=== PATIENT | male | born 1935 ===

== ENCOUNTER 2021-12-31 19:36 | Emergency (ER) | payer OTHER ==
[~2021-12-31] VITALS: Ht 170.2 cm; Wt 53.5 kg
--- NOTE | 2021-12-31 20:33 | NUR ---
Dr pritchett at bedside, MSE in progress.
[2021-12-31] MEDS ORDERED: IV NORMAL SALINE 500 ML BAG IV ONE (20:45)
[2021-12-31 20:57] LABS: HEMATOCRIT 30.1 % (36.7-47.1); MEAN CORPUSCULAR HEMOGLOBIN 30.6 uug (23.8-33.4); MEAN CORPUSCULAR VOLUME 88.1 fL (73.0-96.2); PLATELET COUNT (AUTO) 122 K/uL (152-348)
[2021-12-31 21:03] LABS: CREATININE 1.2 mg/dL (0.6-1.3); POTASSIUM 4.8 mmol/L (3.5-5.1)
[2021-12-31 21:16] LABS: BILIRUBIN,DIRECT 0.1 mg/dL (0.0-0.2); BILIRUBIN,TOTAL 0.3 mg/dL (0.2-1.0); TOTAL PROTEIN, SERUM 6.6 g/dL (6.4-8.2)
[2021-12-31 22:32] VITALS: BP 132/95
--- NOTE | 2021-12-31 22:32 | NUR ---
Patient discharged to home in stable condition. Written and verbal after care instructions given. Patient verbalizes understanding of instructions. Stressed follow up or return to ER for worsening s/s. pt ambulated with steady gait. denies pain. no SOB. no chest pain. AOx4
== END 2021-12-31 22:33 | disposition home or self-care (01) ==
LOC: ER 19:44
DX: U07.1 COVID-19 (principal); J12.82 Pneumonia due to coronavirus disease 2019; J02.9 Acute pharyngitis, unspecified; R94.31 Abnormal electrocardiogram [ECG] [EKG]; Z85.028 Personal history of other malignant neoplasm of stomach; Z92.21 Personal history of antineoplastic chemotherapy
CPT/HCPCS: 36415; 71045; 80048; 80076; 83880; 84145; 85025; 87040 ×2; 87400; 87426; 93005; 96360; 99285; J7040

== ENCOUNTER 2022-01-02 07:28 | Inpatient (IN) | payer OTHER ==
[~2022-01-02] VITALS: Ht 170.2 cm; Wt 53.5 kg
[2022-01-02] MEDS: AZITHROMYCIN 250 MG TABLET PO ONE ×2 (08:00→08:59)
[2022-01-02] MEDS ORDERED: DEXAMETHASONE SOD PHOSPHATE 4 MG INJ IV ONE (08:00)
[2022-01-02] MEDS ORDERED: IV NORMAL SALINE 1000 ML BAG IV ONE (08:00)
[2022-01-02] MEDS ORDERED: CEFTRIAXONE 1 G in IV DEXTROSE 5% 50 ML IV ONE (08:00)
[2022-01-02] MEDS ORDERED: CEFTRIAXONE /D5W 50ML IVPB **ER PYXIS IV ONE (08:04)
[2022-01-02] MEDS ORDERED: DEXAMETHASONE SOD PHOSPHATE 10 MG INJ ONE (08:05)
[2022-01-02] MEDS ORDERED: AZITHROMYCIN 500MG/ D5W 250ML IVPB **ER PYXIS ONLY IV ONE (08:05)
--- NOTE | 2022-01-02 08:10 | NUR ---
CASIE ASHFORD PROVIDED FOR PT. SON ATM[facility].
[2022-01-02] MEDS ORDERED: ACETAMINOPHEN ES 500 MG TABLET ONE (08:43)
[2022-01-02 08:44] LABS: HEMATOCRIT 29.2 % (36.7-47.1); MEAN CORPUSCULAR HEMOGLOBIN 30.8 uug (23.8-33.4); MEAN CORPUSCULAR VOLUME 87.9 fL (73.0-96.2); PLATELET COUNT (AUTO) 119 K/uL (152-348)
[2022-01-02 08:55] LABS: CARBON DIOXIDE 26 mmol/L (21-32); CHLORIDE 101 mmol/L (98-107); GLUCOSE 102 mg/dL (74-106); POTASSIUM 4.3 mmol/L (3.5-5.1); UREA NITROGEN, BLOOD 15 mg/dL (7-18)
[2022-01-02] MEDS ORDERED: ACETAMINOPHEN ES 500 MG TABLET PO ONE (09:00)
[2022-01-02 09:23] LABS: ALANINE AMINOTRANSFERASE 18 U/L (16-63); ALKALINE PHOSPHATASE 85 U/L (50-136); ASPARTATE AMINOTRANSFERASE 17 U/L (15-37); BILIRUBIN,DIRECT 0.1 mg/dL (0.0-0.2); BILIRUBIN,TOTAL 0.3 mg/dL (0.2-1.0); TOTAL PROTEIN, SERUM 6.3 g/dL (6.4-8.2)
[2022-01-02] MEDS ORDERED: AZITHROMYCIN IV 500 MG in IV DEXTROSE 5% 250 ML IV SCH (09:30)
[2022-01-02] MEDS ORDERED: ACETAMINOPHEN 325 MG TABLET PO ONE (09:30)
--- NOTE | 2022-01-02 11:25 | NUR ---
PT MABULATED TO BATHROOM TWICE WITH STEADY GAIT. PT SAYS FEELS BETTER. PT'S SON TRANSLATES FROM [place] TO [place]. PT ONLY SPEAKING [place].
--- NOTE | 2022-01-02 11:27 | NUR ---
PT REQUESTING KOSHER FOOD ONLY.
--- NOTE | 2022-01-02 11:41 | NUR ---
pt admitted to tele. transfer to floor pending on bed availability.
[2022-01-02] MEDS ORDERED: ONDANSETRON 4 MG/2 ML VIAL IV PRN (11:45)
--- NOTE | 2022-01-02 12:39 | NUR ---
PT EATING LUNCH WITH GOOD APETITE. PT SAYS THAT HE FEELS BETTER.
[2022-01-02 16:27] LABS: *RHEUMATOID FACTOR SCREEN NEGATIVE (NEGATIVE)
[2022-01-02 16:46] LABS: THYROID STIMULATING HORMONE 3.951 mIU/mL (0.358-3.740)
--- NOTE | 2022-01-02 16:56 | NUR ---
please contact the following family members in case of any questions/matters any time: kalpesh moralez son [phone] pop salud grand daughter [phone] swathi salud grand son [phone] gurmeetgiorgio brannon grandson [phone]
--- NOTE | 2022-01-02 17:00 | NUR ---
pt agreed to have regular/cardiac diet without pork in stead of kosher diet.
--- NOTE | 2022-01-02 17:00 | NUR ---
dinner tray provided for pt.
--- NOTE | 2022-01-02 17:02 | NUR ---
transfered pt to floor in stable condition.
--- NOTE | 2022-01-02 17:10 | NUR ---
RECEIVED PATIENT FOR ADMISSION 86 YEARS OLD MALE BY KAI FROM ED WITH DX OF COVID PNEUMONIA PLACED INTO BED FIXED AND MADE COMFORTABLE PATIENT IS AWAKE ALERT AND AWARE FOLLOWS COMMAND BUT WITH LANGUAGE BARRIER AND PER REPORT HE IS HARD OF HEARING.HE IS ON ROOM AIR WITH ZEINA SOB PLACED ON COVID ISOLATION AND PRECAUTION AFEBRILE MADE COMFORTABLE WILL OBSERVE.
[2022-01-02 17:57] VITALS: BP 130/57
--- NOTE | 2022-01-02 19:30 | NUR ---
Received pt awake, alert and orientedx3. Pt in no acute respiratory distress. Iv intact. Safety and comfort provided. Will continue to monitor.
[2022-01-02 20:27] VITALS: BP 124/64
[2022-01-02] MEDS: IV NS 1000 ML 1,000 ML IV PRN (21:02)
[2022-01-02] MEDS: ENOXAPARIN SODIUM 40 MG/0.4 ML DISP.SYRIN SQ SCH (21:18)
--- NOTE | 2022-01-02 22:00 | NUR ---
Told pt that he will have to be NPO after midnight. Pt understand. Will continue to monitor.
[2022-01-03 04:33] VITALS: BP 123/63
--- NOTE | 2022-01-03 05:08 | NUR ---
stool ob specimen sent to lab. Waiting for urine and sputum specimen from the pt. Pt in no acute distress. Will continue to monitor.
[2022-01-03 06:10] LABS: *OCCULT BLOOD STOOL NEGATIVE (NEGATIVE)
--- NOTE | 2022-01-03 06:25 | NUR ---
sputum specimen sent to lab. Pt in no acute distress.Pt npo after midnight. Pt aware. All needs are met. Safety and comfort provided. Will endorse to incoming nurse for continuity of care.
--- NOTE | 2022-01-03 07:21 | NUR ---
IN ROOM AWAKE ALERT REMAIN ON COVID ISOLATION AND PRECAUTION NO SOB AT THIS TIME NOTED WITH OCCASSIONAL COUGH WITH NO SECRETIONS IVF IS IN PROGRESS ORDERED REMAIN ON ATB WITH NO S/S OF ADVERSE OR ALLERGIC REACTIONS AT THIS TIME MADE COMFORTABLE WILL CONTINUE TO OBSERVE.
[2022-01-03] MEDS ORDERED: CEFTRIAXONE 1 G in IV DEXTROSE 5% 50 ML IV SCH (08:00)
[2022-01-03 08:20] LABS: HEMATOCRIT 30.5 % (36.7-47.1); MEAN CORPUSCULAR HEMOGLOBIN 30.8 uug (23.8-33.4); MEAN CORPUSCULAR VOLUME 87.8 fL (73.0-96.2); PLATELET COUNT (AUTO) 143 K/uL (152-348)
[2022-01-03 08:22] LABS: MAGNESIUM 2.1 mg/dL (1.8-2.4); PHOSPHOROUS 3.5 mg/dL (2.5-4.9); POTASSIUM 4.8 mmol/L (3.5-5.1)
[2022-01-03] MEDS ORDERED: AZITHROMYCIN IV 500 MG in IV DEXTROSE 5% 250 ML IV SCH (09:00)
--- NOTE | 2022-01-03 09:24 | NUR ---
PATIENT SEEN AND EXAMINED BY FELIX CROCKER WITH NEW ORDERS AND NOTED
[2022-01-03 13:03] VITALS: BP 115/67
--- NOTE | 2022-01-03 16:22 | NUR ---
[facility] CRIMINAL JUSTICE PROFESSOR HERE TO SEE PATIENT WITH ORDERS.
[2022-01-03 16:34] LABS: *BILIRUBIN,URIN NEGATIVE (NEGATIVE); *BLOOD, URINE NEGATIVE (NEGATIVE); *CLARITY,URINE CLEAR (CLEAR); *COLOR,URINE YELLOW (YELLOW); *KETONES,URINE NEGATIVE (NEGATIVE); *UROBILINOGEN,URINE 0.2 E.U./dl (NORMAL); LEUKOCYTE ESTERASE ,URINE NEGATIVE (NEGATIVE); NITRITE, URINE NEGATIVE (NEGATIVE); PH,URINE 6.5 (5.0-8.0); UGLUCOSE NEGATIVE (NEGATIVE)
[2022-01-03 20:00] VITALS: BP 146/80
[2022-01-03] MEDS: ENOXAPARIN SODIUM 40 MG/0.4 ML DISP.SYRIN SQ SCH (20:37)
[2022-01-03] MEDS: ACETAMINOPHEN 325 MG TABLET PO PRN (20:41)
--- NOTE | 2022-01-03 20:41 | NUR ---
Received patient lying in bed. AAOx4. In no acute distress. Denies any pain. Complained of feeling cold. Shivering noted. Retook temp and was 99.7 orally. Tylenol 650mg PO given. Cooling measure provided. Instructed not to cover self with so many blankets. TC to patient son Moe to explain to patient and states understanding, he will phone patient. Denies any SOB. No coughing noted. COVID precaution observed. Other needs assessed and attended to. Safety measure initiated and call light within reached. Continue to monitor.
--- NOTE | 2022-01-03 22:21 | NUR ---
Patient continue to put on several blankets inspite of teaching provided regarding increase in temp. Grandson also came and brought sweater for patient. Teaching also provided to pt grandson, but insisting on keeping pt warm. Try to continue to provide cooling measures. Temp now 102.[address] Macedo. Awaiting for any new order.
[2022-01-03] MEDS: IV NS 1000 ML 1,000 ML IV PRN (22:28)
--- NOTE | 2022-01-03 22:39 | NUR ---
Dr. Macedo with order to do Blood Culturex2. Order carried out, informed [facility] and states understanding. Continue to monitor.
--- NOTE | 2022-01-03 23:30 | NUR ---
Temp. down to 100.8 orally. Continue with cooling measures. Denies any pain. Continue to monitor.
[2022-01-04 04:33] VITALS: BP 130/64
[2022-01-04 05:07] LABS: HEPATITIS B SURFACE AG Negative (Negative)
--- NOTE | 2022-01-04 06:27 | NUR ---
Patient slept well during the night. Denies any pain or SOB. Latest temp 99.2 orally. IV site on left FA intact and patent. IVF infusing.COVID precaution maintained. Needs attended to and met. Safety measure maintained and call light within reached.
[2022-01-04 06:46] LABS: HEMATOCRIT 30.1 % (36.7-47.1); MEAN CORPUSCULAR HEMOGLOBIN 30.7 uug (23.8-33.4); MEAN CORPUSCULAR VOLUME 87.4 fL (73.0-96.2); PLATELET COUNT (AUTO) 148 K/uL (152-348)
[2022-01-04 07:07] LABS: *ANTI-SCLERODERMA-70 AB <0.2 AI (0.0-0.9); *IMMUNOGLOBULIN G, SERUM 507 mg/dL (603-1613); *SJOGREN'S ANTI-SS-A <0.2 AI (0.0-0.9); *SJOGREN'S ANTI-SS-B <0.2 AI (0.0-0.9); *SMITH ANTIBODIES <0.2 AI (0.0-0.9); ANTI-DNA(DS) AB, QN <1 IU/mL (0-9); IMMUNOGLOBULIN A, SERUM 51 mg/dL (61-437); IMMUNOGLOBULIN M, SERUM 16 mg/dL (15-143)
[2022-01-04 07:19] LABS: CREATININE 1.2 mg/dL (0.6-1.3); MAGNESIUM 1.9 mg/dL (1.8-2.4); PHOSPHOROUS 3.3 mg/dL (2.5-4.9); POTASSIUM 4.7 mmol/L (3.5-5.1)
--- NOTE | 2022-01-04 07:42 | NUR ---
RECEIVED PATIENT IN BED REMAIN ON COVID ISOLATION AND PRECAUTION AFEBRILE AT THIS TIME PATIENT IS ALERT WITH LANGUAGE BARRIER IVF IN PROGRESS ORDERED WITH NO S/S OF INFILTERATION CALL LIGHTS AND PERSONAL BELONGINGS ARE WITHIN EASY REACH WILL CONTINUE TO OBSERVE.
[2022-01-04] MEDS: ACETAMINOPHEN 325 MG TABLET PO PRN ×2 (09:12→21:04)
--- NOTE | 2022-01-04 11:00 | NUR ---
PATIENT SEEN AND EXAMINE BY TELMA SMITH DERRICK FOLLOWER SPOKE WITH PATIENTS SON ELOISE AT LENGTH RE PLAN OF CARE WITH NEW ORDERS AND NOTED.
[2022-01-04 11:06] LABS: ALBUMIN 2.8 g/dL (2.9-4.4); ALPHA-1-GLOBULIN 0.4 g/dL (0.0-0.4); BETA GLOBULIN 0.9 g/dL (0.7-1.3); GAMMA GLOBULIN 0.5 g/dL (0.4-1.8); GLOBULIN, TOTAL 2.7 g/dL (2.2-3.9); M-SPIKE Not Observed g/dL (Not Observed)
[2022-01-04] MEDS ORDERED: ALBUTEROL SULFATE 8 GM HFA.AER.AD IH PRN (11:30)
--- NOTE | 2022-01-04 11:42 | NUR ---
DR HERNANDEZ NOTIFIED THAT PATIENT HAS FEVER MOST OF LAST NITE AND HAD ONE AT 0912 AT 101.7 HAD BLOOD CULTURES DONE LAST NOC BUT STATED NO NEW ORDERS AT THIS TIME.
[2022-01-04] MEDS: ZINC SULFATE 220 MG CAPSULE PO SCH (12:00)
[2022-01-04] MEDS: CHOLECALCIFEROL 1,000 UNIT TABLET PO SCH (12:00)
[2022-01-04] MEDS: ASCORBIC ACID 500 MG TABLET PO SCH ×2 (12:00→20:22)
[2022-01-04 12:01] VITALS: BP 105/54
[2022-01-04 16:35] VITALS: BP 99/48
[2022-01-04] MEDS: ENSURE ENLIVE (VAN) 240 ML LIQUID PO SCH (17:46)
[2022-01-04] MEDS: IV NS 1000 ML 1,000 ML IV PRN (18:40)
--- NOTE | 2022-01-04 19:30 | NUR ---
Received patient lying in bed. Family at bedside. Patient AAOx4. In no acute distress. Denies any pain or SOB. Afebrile at this time with temp. of 98.3 orally. IV site on left FA intact and patent. IVF infusing. COVID precaution observed. Needs assessed and attended to. Safety measure initiated and call light within reached.
[2022-01-04 20:00] VITALS: BP 138/78
[2022-01-04] MEDS: ENOXAPARIN SODIUM 40 MG/0.4 ML DISP.SYRIN SQ SCH (20:23)
--- NOTE | 2022-01-04 21:00 | NUR ---
Recheck patient temp and was 100.0 orally. Tylenol 650mg PO given for fever. Cooling measure initiated. Continue to monitor.
--- NOTE | 2022-01-04 23:23 | NUR ---
Patient afebrile at this time. Latest temp 98.7 orally. Denies any pain or SOB.
[2022-01-05 04:00] VITALS: BP 122/45
--- NOTE | 2022-01-05 05:53 | NUR ---
Patient AAOx4. In no apparent distress. Denies any pain or SOB. Afebrile at this time. IV site on left FA remains intact and patent. IVF infusing. COVID precaution maintained. Needs attended to and met. Safety measure maintained and call light within reached.
[2022-01-05 07:12] LABS: HEMATOCRIT 29.8 % (36.7-47.1); MEAN CORPUSCULAR HEMOGLOBIN 30.7 uug (23.8-33.4); MEAN CORPUSCULAR VOLUME 87.3 fL (73.0-96.2); PLATELET COUNT (AUTO) 142 K/uL (152-348)
[2022-01-05 08:35] LABS: BILIRUBIN,TOTAL 0.3 mg/dL (0.2-1.0); CREATININE 1.1 mg/dL (0.6-1.3); MAGNESIUM 1.9 mg/dL (1.8-2.4); POTASSIUM 4.6 mmol/L (3.5-5.1); TOTAL PROTEIN, SERUM 6.3 g/dL (6.4-8.2)
[2022-01-05] MEDS: ENSURE ENLIVE (VAN) 240 ML LIQUID PO SCH ×2 (08:59→17:23)
[2022-01-05] MEDS: ASCORBIC ACID 500 MG TABLET PO SCH ×2 (09:00→21:01)
[2022-01-05] MEDS: CHOLECALCIFEROL 1,000 UNIT TABLET PO SCH (09:00)
[2022-01-05] MEDS: ZINC SULFATE 220 MG CAPSULE PO SCH (09:00)
[2022-01-05] MEDS: ACETAMINOPHEN 325 MG TABLET PO PRN ×2 (09:00→17:24)
--- NOTE | 2022-01-05 09:18 | NUR ---
Pt is a/o x 4, minimal Uzbek speaking. Pt has a temperature, administered acetaminophen and notified charge nurse. Will reassess. Comfort measures and cooling measures provided. Pt is cooperative with care. Call light within reach.
[2022-01-05 12:00] VITALS: BP 113/45
[2022-01-05 16:29] VITALS: BP 103/44
--- NOTE | 2022-01-05 19:23 | NUR ---
notified of fever 102. Tylenol given, cooling measures provided. Endorsed new orders to mold shifter.
[2022-01-05] MEDS ORDERED: IV NORMAL SALINE 500 ML IV ONE (19:30)
[2022-01-05] MEDS ORDERED: ACETAMINOPHEN 650 MG SUPP.RECT RC PRN (19:30)
[2022-01-05 20:00] VITALS: BP 101/49
--- NOTE | 2022-01-05 20:45 | NUR ---
Patient in bed alert and able to make needs known. Denies Tylenol supp. Continue Cooling measures .Rechecked temp went down to 99.1.On Ra. No s/s of distress noted. Patient ambulates to bathroom.Voided well.Continue on isolation precaution for covid. Call light with in reach. Will continue to monitor. Addendum: 01/06/22 at 0722 by TAMY MCKNIGHT RN Correction:Refused Tylenol supp.
[2022-01-05] MEDS: ENOXAPARIN SODIUM 40 MG/0.4 ML DISP.SYRIN SQ SCH (21:14)
[2022-01-06 05:08] VITALS: BP 126/88
[2022-01-06 06:47] LABS: HEMATOCRIT 27.3 % (36.7-47.1); MEAN CORPUSCULAR HEMOGLOBIN 30.5 uug (23.8-33.4); MEAN CORPUSCULAR VOLUME 86.2 fL (73.0-96.2); PLATELET COUNT (AUTO) 110 K/uL (152-348)
[2022-01-06 07:19] LABS: BILIRUBIN,TOTAL 0.4 mg/dL (0.2-1.0); CREATININE 1.1 mg/dL (0.6-1.3); POTASSIUM 4.2 mmol/L (3.5-5.1); TOTAL PROTEIN, SERUM 6.1 g/dL (6.4-8.2)
--- NOTE | 2022-01-06 07:23 | NUR ---
Patient slept well. No acute resp. distress noted. Afebrile throughout the shift.All needs anticipated and met accordingly.Will endorse to oncoming shift
[2022-01-06] MEDS: ACETAMINOPHEN 325 MG TABLET PO PRN ×2 (09:15→18:43)
[2022-01-06] MEDS: CHOLECALCIFEROL 1,000 UNIT TABLET PO SCH (09:15)
[2022-01-06] MEDS: ASCORBIC ACID 500 MG TABLET PO SCH ×2 (09:16→21:09)
[2022-01-06] MEDS: ZINC SULFATE 220 MG CAPSULE PO SCH (09:16)
[2022-01-06] MEDS: ENSURE ENLIVE (VAN) 240 ML LIQUID PO SCH ×2 (09:42→18:00)
[2022-01-06 12:12] VITALS: BP 94/42
[2022-01-06] MEDS: MIDODRINE HCL 2.5 MG TABLET PO SCH ×2 (13:54→21:10)
[2022-01-06 16:00] VITALS: BP 125/60
[2022-01-06 20:00] VITALS: BP 97/49
[2022-01-06] MEDS: ENOXAPARIN SODIUM 40 MG/0.4 ML DISP.SYRIN SQ SCH (21:12)
[2022-01-07 04:30] VITALS: BP 142/67
[2022-01-07] MEDS: MIDODRINE HCL 2.5 MG TABLET PO SCH ×3 (05:50→21:47)
[2022-01-07] MEDS: ACETAMINOPHEN 325 MG TABLET PO PRN (05:50)
[2022-01-07 06:48] VITALS: BP 105/45
--- NOTE | 2022-01-07 06:58 | NUR ---
Slept throughout the night. No distress noted. IV site intact. Temp of 101.3 this morning. Tylenol given and cooling measures initiated. Temp rechecked, 99.6. Will endorse to day shift.
--- NOTE | 2022-01-07 07:30 | NUR ---
Received patient in bed awake alert and oriented times 4. Pt speaks Bulgarian and Upper Sorbian. Pt is on isolation for covid 19. No sign of distress noted at this time. Safety precautions are in place. Will continue to monitor.
[2022-01-07] MEDS: CHOLECALCIFEROL 1,000 UNIT TABLET PO SCH (08:35)
[2022-01-07] MEDS: ZINC SULFATE 220 MG CAPSULE PO SCH (08:35)
[2022-01-07] MEDS: ASCORBIC ACID 500 MG TABLET PO SCH ×2 (08:35→21:47)
[2022-01-07] MEDS: ENSURE ENLIVE (VAN) 240 ML LIQUID PO SCH ×2 (08:35→17:15)
[2022-01-07 11:18] VITALS: BP 102/54
[2022-01-07] MEDS ORDERED: ACET325T53 PO (14:08)
[2022-01-07] MEDS ORDERED: CHOL100062 PO (14:08)
[2022-01-07] MEDS ORDERED: ASCO500T21 PO (14:08)
[2022-01-07] MEDS ORDERED: ALBU8HFA4 IH (14:08)
[2022-01-07] MEDS ORDERED: ZINC1CAP3 PO (14:08)
[2022-01-07 16:24] VITALS: BP 106/52
--- NOTE | 2022-01-07 17:52 | NUR ---
Patient's temperature spiked at 103.[address] LIGHT SERVICER Ke aware. A suppository was administered. Will check temperature again in 1 hour. Son aware and will go home a await call to fern picker patient. Will continue to monitor.
--- NOTE | 2022-01-07 19:30 | NUR ---
Cooling measure were also implemented. Report endorsed to oncoming nurse who will recheck temperature and continue to monitor. All medications given as ordered.
--- NOTE | 2022-01-07 19:40 | NUR ---
Received patient in bed, cont on droplet precaution, patient has fever, am RN giving cooling measure plus meds for fever, no s/s of distress. patient supposedly discharge today, but patient look pale and has fever according from am RN, so patient will stay one more day for observations per Erin Burgos SUPERVISOR TUMBLING AND ROLLING.
[2022-01-07 20:00] VITALS: BP 99/41
--- NOTE | 2022-01-07 20:10 | NUR ---
PATIENT PCR TEST STILL POSITIVE FOR COVID, TELMA SMITH NOTIFY. PATIENT STILL HAS A TEMP 101.5, CONTINUE COOLING MEASURE. CONT TO MONITOR.
[2022-01-07] MEDS: ENOXAPARIN SODIUM 40 MG/0.4 ML DISP.SYRIN SQ SCH (22:06)
[2022-01-08] MEDS: ACETAMINOPHEN 325 MG TABLET PO PRN ×2 (04:24→16:31)
[2022-01-08 04:57] VITALS: BP 111/62
[2022-01-08] MEDS: MIDODRINE HCL 2.5 MG TABLET PO SCH ×3 (05:03→22:04)
--- NOTE | 2022-01-08 05:34 | NUR ---
Patient still spike temp of 102.9 given tylenol 650mg, plus cooling measure, patient alert oriented, no sob no chest pain. remain in droplet precaution, cont to monitor.
--- NOTE | 2022-01-08 06:46 | NUR ---
current temp 98.9 oral
[2022-01-08 07:45] LABS: CREATININE 1.3 mg/dL (0.6-1.3); POTASSIUM 4.7 mmol/L (3.5-5.1)
[2022-01-08 07:49] LABS: HEMATOCRIT 27.3 % (36.7-47.1); MEAN CORPUSCULAR HEMOGLOBIN 30.5 uug (23.8-33.4); MEAN CORPUSCULAR VOLUME 86.5 fL (73.0-96.2); PLATELET COUNT (AUTO) 116 K/uL (152-348)
[2022-01-08 08:10] LABS: EOSINOPHILS % (MANUAL) 1 % (0-8); LYMPHOCYTES % (MANUAL) 13 % (20-40); MONOCYTES % (MANUAL) 13 % (2-10); NEUTROPHILS % (MANUAL) 73 % (42-75)
[2022-01-08] MEDS: ASCORBIC ACID 500 MG TABLET PO SCH ×2 (08:29→20:29)
[2022-01-08] MEDS: CHOLECALCIFEROL 1,000 UNIT TABLET PO SCH (08:29)
[2022-01-08] MEDS: ZINC SULFATE 220 MG CAPSULE PO SCH (08:30)
[2022-01-08] MEDS: ENSURE ENLIVE (VAN) 240 ML LIQUID PO SCH ×2 (08:30→16:31)
[2022-01-08 12:00] VITALS: BP 92/45
[2022-01-08 16:00] VITALS: BP 134/73
[2022-01-08] MEDS ORDERED: CEFEPIME HCL 1 G in IV DEXTROSE 5% 50 ML IV SCH (18:00)
[2022-01-08 20:00] VITALS: BP 97/42
[2022-01-08] MEDS: VANCOMYCIN IV 500 MG in IV DEXTROSE 5% 100 ML IV SCH (20:29)
[2022-01-08] MEDS: CEFEPIME HCL 1 G in IV DEXTROSE 5% 50 ML IV SCH (22:04)
[2022-01-08] MEDS: ENOXAPARIN SODIUM 40 MG/0.4 ML DISP.SYRIN SQ SCH (22:07)
[2022-01-09] MEDS: ACETAMINOPHEN 325 MG TABLET PO PRN ×2 (01:20→13:16)
[2022-01-09 04:00] VITALS: BP 135/65
[2022-01-09] MEDS: CEFEPIME HCL 1 G in IV DEXTROSE 5% 50 ML IV SCH ×2 (05:36→18:18)
[2022-01-09] MEDS: MIDODRINE HCL 2.5 MG TABLET PO SCH ×3 (06:00→21:18)
--- NOTE | 2022-01-09 06:37 | NUR ---
Patient in no acute distress noted. On Ra. Inserted new Iv line on right FA 20g with good blood return. Administered Iv ATB as ordered.No adverse reaction noted.Patient ambulates to bathroom. Grandson /More called and updated regarding patient's condition. Stated he wants to talk to MD.Will endorse to oncoming shift.
[2022-01-09 07:02] LABS: HEMATOCRIT 25.6 % (36.7-47.1); MEAN CORPUSCULAR HEMOGLOBIN 30.3 uug (23.8-33.4); PLATELET COUNT (AUTO) 115 K/uL (152-348)
[2022-01-09 07:13] LABS: CREATININE 1.3 mg/dL (0.6-1.3)
--- NOTE | 2022-01-09 08:00 | NUR ---
awake and responsive. no ss of pain or sob. comfortable on room air o2 sat 98%. iv access intact and patent. appears comfortable. afebrile 98.1. needs attended. will cont to observe.
--- NOTE | 2022-01-09 08:04 | NUR ---
call received from lab [facility] 1.[address] nicolle jones and dr alcaraz. per dr alcaraz she will take a look. no orders received at this time.
[2022-01-09 08:30] VITALS: BP 116/40
[2022-01-09] MEDS: ZINC SULFATE 220 MG CAPSULE PO SCH (10:03)
[2022-01-09] MEDS: ASCORBIC ACID 500 MG TABLET PO SCH ×2 (10:03→20:21)
[2022-01-09] MEDS: ENSURE ENLIVE (VAN) 240 ML LIQUID PO SCH ×2 (10:03→17:58)
[2022-01-09] MEDS: CHOLECALCIFEROL 1,000 UNIT TABLET PO SCH (10:03)
[2022-01-09 12:12] VITALS: BP 105/52
[2022-01-09 12:58] LABS: BAND % (MANUAL) 10 % (0-10); LYMPHOCYTES % (MANUAL) 8 % (20-40); MONOCYTES % (MANUAL) 10 % (2-10); NEUTROPHILS % (MANUAL) 72 % (42-75)
[2022-01-09 16:56] VITALS: BP 100/44
[2022-01-09] MEDS: VANCOMYCIN IV 500 MG in IV DEXTROSE 5% 100 ML IV SCH (16:57)
--- NOTE | 2022-01-09 18:53 | NUR ---
needs attended. safety measures kept. no ss of pain or sob.
[2022-01-09 20:47] VITALS: BP 103/63
[2022-01-09] MEDS: ENOXAPARIN SODIUM 40 MG/0.4 ML DISP.SYRIN SQ SCH (20:50)
[2022-01-10] MEDS: ACETAMINOPHEN 325 MG TABLET PO PRN ×2 (01:02→19:49)
[2022-01-10 04:26] VITALS: BP 95/67
[2022-01-10] MEDS: MIDODRINE HCL 2.5 MG TABLET PO SCH ×3 (05:06→22:00)
[2022-01-10] MEDS: CEFEPIME HCL 1 G in IV DEXTROSE 5% 50 ML IV SCH ×2 (05:06→17:15)
--- NOTE | 2022-01-10 06:36 | NUR ---
Patient asleep but easily arousable in no acute distress noted. Ra Saturating well.Compliant with medication. Iv patent and intact on left FA .Infused IV aTB as ordere.No a/r noted. Continue safety measures and isolation precaution. Call light with in reach. Will endorse to oncoming shift.
[2022-01-10 07:25] LABS: HEMATOCRIT 23.4 % (36.7-47.1); MEAN CORPUSCULAR HEMOGLOBIN 30.6 uug (23.8-33.4); MEAN CORPUSCULAR VOLUME 85.7 fL (73.0-96.2); PLATELET COUNT (AUTO) 112 K/uL (152-348)
[2022-01-10] MEDS: ZINC SULFATE 220 MG CAPSULE PO SCH (09:20)
[2022-01-10] MEDS: ENSURE ENLIVE (VAN) 240 ML LIQUID PO SCH ×2 (09:20→17:15)
[2022-01-10] MEDS: CHOLECALCIFEROL 1,000 UNIT TABLET PO SCH (09:20)
[2022-01-10] MEDS: ASCORBIC ACID 500 MG TABLET PO SCH ×2 (09:21→20:49)
--- NOTE | 2022-01-10 10:16 | NUR ---
awake and responsive. denies pain or sob. comfortable on room air o2 sat 96%. rfa iv infiltrated. lead cytogenetic technologist karen ordered for midline. pt comfortable. lead cytogenetic technologist naty rounding and updated. she states she will call son aneta to obtain records from [facility]. cont covid precautions. needs attended.
[2022-01-10 11:53] VITALS: BP 121/59
--- NOTE | 2022-01-10 12:55 | NUR ---
seen and examined by compounder helper karen no new order received.
--- NOTE | 2022-01-10 15:37 | NUR ---
family brought in medical records from [facility]. filed in chart. area attendant karen and oncology made aware.
[2022-01-10 16:00] VITALS: BP 127/67
--- NOTE | 2022-01-10 18:17 | NUR ---
afebrile this morning. denies pain or sob. needs attended. safety measures kept. call light in reach
--- NOTE | 2022-01-10 19:15 | NUR ---
Received patient on bed, awake, on room air, no signs of respiratory distress, no complaint of pain. safety precautions provided, call light placed within reach.
--- NOTE | 2022-01-10 19:36 | NUR ---
Patient`s temperature 101.2, Tylenol 325 2 tablets given.
[2022-01-10 20:12] VITALS: BP 132/75
--- NOTE | 2022-01-10 20:30 | NUR ---
Informed Erin Burgos NP, latest platelet 112, patient on Lovenox at HS, no current signs of bleeding, ordered to Hold Lovenox tonight.
[2022-01-10] MEDS: ENOXAPARIN SODIUM 40 MG/0.4 ML DISP.SYRIN SQ SCH (20:50)
--- NOTE | 2022-01-10 21:00 | NUR ---
Temperature rechecked 97.5. not in respiratory distress.
--- NOTE | 2022-01-10 22:00 | NUR ---
Midodrine not given, patient`s BP 131/72.
[2022-01-11 03:22] LABS: *BILIRUBIN,URIN NEGATIVE (NEGATIVE); *BLOOD, URINE NEGATIVE (NEGATIVE); *CLARITY,URINE CLEAR (CLEAR); *COLOR,URINE YELLOW (YELLOW); *KETONES,URINE NEGATIVE (NEGATIVE); *UROBILINOGEN,URINE 0.2 E.U./dl (NORMAL); LEUKOCYTE ESTERASE ,URINE NEGATIVE (NEGATIVE); NITRITE, URINE NEGATIVE (NEGATIVE); UGLUCOSE NEGATIVE (NEGATIVE)
[2022-01-11 04:21] VITALS: BP 114/74
[2022-01-11] MEDS: ACETAMINOPHEN 325 MG TABLET PO PRN ×2 (05:22→21:00)
[2022-01-11] MEDS: CEFEPIME HCL 1 G in IV DEXTROSE 5% 50 ML IV SCH (05:23)
--- NOTE | 2022-01-11 05:35 | NUR ---
Patient slept intermittently, Temperature 99.5, stated he feels cold, Tylenol 650mg given. kept patient warm with blanket. Cristina to go to the bathroom independently. No complaint of pain. Due medications given. Still on room air, not in respiratory distress.
[2022-01-11] MEDS: MIDODRINE HCL 2.5 MG TABLET PO SCH ×3 (06:00→21:00)
--- NOTE | 2022-01-11 06:54 | NUR ---
Midodrine at 0600 not given, BP 114/74
--- NOTE | 2022-01-11 07:00 | NUR ---
Patient slept well, no shortness of breath, productive cough still noted, going to the bathroom independently. Compliant with the medications. For continuity of care.
--- NOTE | 2022-01-11 08:00 | NUR ---
Awake, alert, oriented x 4. Room air with O2 sat of 95%. Afebrile at this time
[2022-01-11 09:00] VITALS: BP 102/53
[2022-01-11] MEDS: ASCORBIC ACID 500 MG TABLET PO SCH ×2 (09:00→21:00)
[2022-01-11] MEDS: ZINC SULFATE 220 MG CAPSULE PO SCH (09:00)
[2022-01-11] MEDS: CHOLECALCIFEROL 1,000 UNIT TABLET PO SCH (09:00)
[2022-01-11] MEDS: ENSURE ENLIVE (VAN) 240 ML LIQUID PO SCH ×2 (09:01→17:51)
[2022-01-11 11:35] VITALS: BP 99/37
[2022-01-11] MEDS: MEROPENEM 1 G in IV NORMAL SALINE 100 ML IV SCH ×2 (12:26→21:00)
--- NOTE | 2022-01-11 12:30 | NUR ---
IV antibiotics changed, given as ordered
[2022-01-11 14:16] LABS: MEAN CORPUSCULAR HEMOGLOBIN 30.1 uug (23.8-33.4); MEAN CORPUSCULAR VOLUME 86.1 fL (73.0-96.2); PLATELET COUNT (AUTO) 119 K/uL (152-348)
[2022-01-11 16:00] VITALS: BP 135/69
--- NOTE | 2022-01-11 18:33 | NUR ---
Covid antigen swab done, sent to lab. Temp 98.9F. Room air maintained with O 2 sat of 95%
[2022-01-11 20:40] VITALS: BP 113/47
[2022-01-11] MEDS: ENOXAPARIN SODIUM 40 MG/0.4 ML DISP.SYRIN SQ SCH (21:34)
[2022-01-12 04:50] VITALS: BP 105/39
[2022-01-12] MEDS: MIDODRINE HCL 2.5 MG TABLET PO SCH ×3 (06:12→20:29)
[2022-01-12] MEDS: ACETAMINOPHEN 325 MG TABLET PO PRN ×2 (06:12→18:03)
--- NOTE | 2022-01-12 07:48 | NUR ---
Slept throughout the night. Denies pain or SOB. Tylenol given prn for fevers, tolerated all medications well. IV site intact. Safety maintained throughout the shift, will endorse to day shift.
[2022-01-12] MEDS: MEROPENEM 1 G in IV NORMAL SALINE 100 ML IV SCH ×2 (08:23→20:27)
[2022-01-12] MEDS: ZINC SULFATE 220 MG CAPSULE PO SCH (08:23)
[2022-01-12] MEDS: CHOLECALCIFEROL 1,000 UNIT TABLET PO SCH (08:23)
[2022-01-12] MEDS: ASCORBIC ACID 500 MG TABLET PO SCH ×2 (08:23→20:28)
[2022-01-12] MEDS: ENSURE ENLIVE (VAN) 240 ML LIQUID PO SCH ×3 (08:24→16:59)
[2022-01-12 10:26] LABS: HEMATOCRIT 28.8 % (36.7-47.1); PLATELET COUNT (AUTO) 163 K/uL (152-348)
[2022-01-12 10:30] VITALS: BP 103/47
--- NOTE | 2022-01-12 10:30 | NUR ---
Patient c/o dizziness during assessment by ID HEALTH ASSOCIATE, Nadege. Assesment conducted by this RN. Patient has no change in LOc. ABle to state he is dizzy in faroese and signals dizziness by rotating his finger in the air. Patient denies any nausea but noted to be burping multiple times. Patient insists on walking to bathroom, one person assist provided for safety. Patient had one loose bowel movement during this time. VS are WNL for patient, water encouraged, dizziness is unrelieved at this time but states "stomach feels better". Patient will rest in bed, safety measures initiated, call light within reach.
--- NOTE | 2022-01-12 11:30 | NUR ---
Patient returned from CT of chest/ abd/ pelvis without contrast. Seen by Dr. Jean, aware patient c/o dizziness, no new orders. Patient will not be discharged at this time, patient is aware.
[2022-01-12 11:35] LABS: BAND % (MANUAL) 4 % (0-10); LYMPHOCYTES % (MANUAL) 18 % (20-40); MONOCYTES % (MANUAL) 6 % (2-10); NEUTROPHILS % (MANUAL) 72 % (42-75)
[2022-01-12 11:59] VITALS: BP 101/34
--- NOTE | 2022-01-12 13:30 | NUR ---
Spoke to patients grandson, provided him an update and facilitated video call with patient. Patient still c/o slight dizziness but states it is better. Bed alarm and call light within reach.
--- NOTE | 2022-01-12 15:20 | NUR ---
Spoke to yisel Patrick and provided him a status update. Pateint is stable at this time, temp is 98.3- oral.
[2022-01-12 16:03] VITALS: BP 102/44
--- NOTE | 2022-01-12 18:04 | NUR ---
Noted with chills and gever of 100.0. Denies any other discomfort. Has poor appetite, Tylenol 650mg po provided.
[2022-01-12 18:30] LABS: *BILIRUBIN,URIN NEGATIVE (NEGATIVE); *BLOOD, URINE NEGATIVE (NEGATIVE); *CLARITY,URINE CLEAR (CLEAR); *COLOR,URINE YELLOW (YELLOW); *KETONES,URINE TRACE (NEGATIVE); *UROBILINOGEN,URINE 0.2 E.U./dl (NORMAL); LEUKOCYTE ESTERASE ,URINE NEGATIVE (NEGATIVE); NITRITE, URINE NEGATIVE (NEGATIVE); UGLUCOSE NEGATIVE (NEGATIVE)
[2022-01-12 18:46] LABS: BACTERIA,URINE NONE SEEN /HPF (NONE SEEN); RBC,URINE 0-3 /HPF (0-3); WBC,URINE 0-3 /HPF (0-3)
[2022-01-12 18:47] LABS: SQUAMOUS EPITHELIAL CELL,UR FEW /HPF (NONE SEEN)
--- NOTE | 2022-01-12 18:56 | NUR ---
Patient remains with chills and temp of 100.5. Patient refuses cooling measures d/t chills. Will endorse to operation shift supervisor to monitor temp.
--- NOTE | 2022-01-12 19:00 | NUR ---
Received patient on bed, awake, on room air, not in labored breathing, stated he feels cold, Temperature 102.5. [place] provided. Encouraged to drink more water. Agreed for cooling measures, ice pack applied over his forehead. Safety precautions provided, call light placed within reach.
[2022-01-12 20:00] VITALS: BP 94/76
--- NOTE | 2022-01-12 20:00 | NUR ---
Received call from the grandson named Artie, asking for update for patients status and according to him the family will discuss for possible AMA.
--- NOTE | 2022-01-12 21:45 | NUR ---
Temperature checked 98.5. Patient stated he feels better at this time.
[2022-01-12] MEDS: ENOXAPARIN SODIUM 40 MG/0.4 ML DISP.SYRIN SQ SCH (21:54)
[2022-01-13] VITALS: BP 114/37
[2022-01-13 04:00] VITALS: BP 118/89
[2022-01-13] MEDS: MIDODRINE HCL 2.5 MG TABLET PO SCH ×2 (05:19→13:53)
[2022-01-13] MEDS: ACETAMINOPHEN 325 MG TABLET PO PRN (05:19)
--- NOTE | 2022-01-13 06:35 | NUR ---
Slept intermittently, no shortness of breath, still with fever around 4am, Tylenol PO given as PRN, latest temperature after cooling measures and Tylenol 99.5. Able to get out of bed going to the bathroom. For continuity of care.
[2022-01-13 06:47] LABS: HEMATOCRIT 24.4 % (36.7-47.1); MEAN CORPUSCULAR HEMOGLOBIN 29.8 uug (23.8-33.4); PLATELET COUNT (AUTO) 127 K/uL (152-348)
[2022-01-13] MEDS ORDERED: REMDESIVIR (CHARGED) 200 MG in IV NORMAL SALINE 210 ML IV ONE (07:00)
[2022-01-13] MEDS: MEROPENEM 1 G in IV NORMAL SALINE 100 ML IV SCH (08:53)
[2022-01-13] MEDS: CHOLECALCIFEROL 1,000 UNIT TABLET PO SCH (08:53)
[2022-01-13] MEDS: ASCORBIC ACID 500 MG TABLET PO SCH (08:53)
[2022-01-13] MEDS: ZINC SULFATE 220 MG CAPSULE PO SCH (08:53)
[2022-01-13] MEDS: ENSURE ENLIVE (VAN) 240 ML LIQUID PO SCH ×2 (08:53→12:38)
--- NOTE | 2022-01-13 09:00 | NUR ---
Patient is afebrile, 98.8. On RA, occasional dry cough noted. Occasional facial grimacing noted, states he is feeling better than yesterday. No chills noted. Safety measures continued. Mid line to left upper arm in place, patent and intact.
--- NOTE | 2022-01-13 13:00 | NUR ---
PCR COVID test completed.
[2022-01-13 13:53] VITALS: BP 104/42
--- NOTE | 2022-01-13 14:40 | NUR ---
Patient signed out AMA, risks of leaving against medical advise explained to patient and family by this RN and by PACK TRAIN DRIVER Zak Smith. Patient son and grandson in unit. Patient wheeled in wheelchair to car with all belongings. Patient still noted weak and slightly unsteady when ambulating.
[2022-01-13 19:29] LABS: BAND % (MANUAL) 6 % (0-10); LYMPHOCYTES % (MANUAL) 8 % (20-40); METAMYELOCYTES % 2 % (0-1); MONOCYTES % (MANUAL) 4 % (2-10); NEUTROPHILS % (MANUAL) 80 % (42-75)
[2022-01-14] MEDS ORDERED: REMDESIVIR (CHARGED) 100 MG in IV NORMAL SALINE 100 ML IV SCH (07:00)
== END 2022-01-13 14:40 | disposition left against medical advice (07) | DRG 177 ==
LOC: ER 07:29 → TRANSITION 14:54 → TELE3 17:00 → MEDSURG3 18:09
PROVIDERS: ADMIT Registered Nurse; ATTEND Nurse Practitioner Acute Care
PROC: 05H633Z Insertion of Infusion Device into Left Subclavian Vein, Percutaneous Approach (ICD-10-PCS; 2022-01-10)
PROC: B547ZZA Ultrasonography of Left Subclavian Vein, Guidance (ICD-10-PCS; 2022-01-10)
PROC: XW033E5 Introduction of Remdesivir Anti-infective into Peripheral Vein, Percutaneous Approach, New Technology Group 5 (ICD-10-PCS; principal; 2022-01-13)
DX: U07.1 COVID-19 (principal); J12.82 Pneumonia due to coronavirus disease 2019; J15.9 Unspecified bacterial pneumonia; E43 Unspecified severe protein-calorie malnutrition; D61.818 Other pancytopenia; E87.1 Hypo-osmolality and hyponatremia; R64 Cachexia; Z68.1 Body mass index [BMI] 19.9 or less, adult; Z92.21 Personal history of antineoplastic chemotherapy; Z85.028 Personal history of other malignant neoplasm of stomach; Z92.3 Personal history of irradiation; D72.819 Decreased white blood cell count, unspecified; E86.1 Hypovolemia; M62.50 Muscle wasting and atrophy, not elsewhere classified, unspecified site; R00.1 Bradycardia, unspecified; Z85.72 Personal history of non-Hodgkin lymphomas; R93.5 Abnormal findings on diagnostic imaging of other abdominal regions, including retroperitoneum
CPT/HCPCS: 36415; 70030-TC; 71045; 71250; 82378; 82746; 82784; 83550; 83605; 83615; 83735; 84100; 84155; 84165; 84443; 84484; 85025; 85730; 86038; 86140; 86334; 86430; 86706; 86803; 87040; 87070; 87086; 87340; 87806; 93005; 97161; A4663; A9150; G0378; J0456; J0692; J0696; J1100; J1650; J2185; J3370; J3535; J7040; J7050; U0003